=== PATIENT | male | born 1990 | race Caucasian/White ===

== ENCOUNTER 2018-02-27 14:41 | Emergency (ER) | payer BC ==
[~2018-02-27] VITALS: Ht 172.7 cm; Wt 79.4 kg
[2018-02-27 14:45] VITALS: Ht 172.7 cm; Wt 79.4 kg
[2018-02-27 17:12] VITALS: BP 116/81
== END 2018-02-27 17:12 | disposition home or self-care (01) ==
LOC: ED 14:41
DX: J06.9 Acute upper respiratory infection, unspecified (principal); Z90.49 Acquired absence of other specified parts of digestive tract
CPT/HCPCS: J2930; J7613; J7644

== ENCOUNTER 2018-03-05 14:39 | Emergency (ER) | payer BC ==
[~2018-03-05] VITALS: Ht 170.2 cm; Wt 73.9 kg
[2018-03-05 14:42] VITALS: Ht 170.2 cm; Wt 73.9 kg
[2018-03-05 15:26] LABS: BASOPHIL % 0.3 % (0-2); PLATELET COUNT 165 x10^3mcL (130-400); RED CELL DISTRIBUTION WIDTH 12.9 % (11.5-14.5)
[2018-03-05 15:33] LABS: CALCIUM 8.8 mg/dL (8.5-10.1); CARBON DIOXIDE 30.5 mmol/L (21-32); CHLORIDE SERUM 102 mmol/L (98-107); CREATININE SERUM 0.9 mg/dL (0.7-1.3); GFR1 > 60 mL/min; GLUCOSE SERUM 115 mg/dL (74-106); POTASSIUM SERUM 3.6 mmol/L (3.5-5.1); SODIUM SERUM 141 mmol/L (136-145)
[2018-03-05 16:58] VITALS: BP 121/77
== END 2018-03-05 16:58 | disposition home or self-care (01) ==
LOC: ED 14:39
PROVIDERS: Emergency Medicine
DX: R06.00 Dyspnea, unspecified (principal); R06.02 Shortness of breath
CPT/HCPCS: 36415; 85378; J7613; J7644; Q0092